=== PATIENT | male | born 2000 | race Caucasian/White ===

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

== ENCOUNTER 2024-12-12 19:20 | Emergency (ER) | payer OTHER ==
[~2024-12-12] VITALS: Ht 177.8 cm; Wt 74.8 kg
[~2024-12-12 19:20] MED LIST changes: +IBUP800 PO
[2024-12-12 19:30] VITALS: BP 158/117
[2024-12-12] MEDS ORDERED: HYDROcodone 10-APAP 325 TAB PO ONE (19:55)
[2024-12-12] MEDS ORDERED: Lidocaine 1%-Epineph 1:100000 20 ML MDV INFIL ONE (19:55)
[2024-12-12] MEDS ORDERED: Ketorolac Tromethamine 15mg Vial IM ONE (21:35)
[2024-12-12] MEDS ORDERED: ONDA4ODT MM (22:01)
[2024-12-12] MEDS ORDERED: KETO10 PO (22:01)
== END 2024-12-12 23:47 | disposition home or self-care (01) ==
LOC: ER 19:20
DX: S41.011A Laceration without foreign body of right shoulder, initial encounter (principal); S51.012A Laceration without foreign body of left elbow, initial encounter; S20.319A Abrasion of unspecified front wall of thorax, initial encounter; F17.290 Nicotine dependence, other tobacco product, uncomplicated; Z23 Encounter for immunization; W01.110A Fall on same level from slipping, tripping and stumbling with subsequent striking against sharp glass, initial encounter
CPT/HCPCS: 12002; 73030; 73080; 90471; 90715; 96372-59; 99283-25; A9270; J1885

== ENCOUNTER 2025-03-11 17:39 | Emergency (ER) | payer OTHER ==
[~2025-03-11] VITALS: Ht 177.8 cm; Wt 73.9 kg
[~2025-03-11 17:39] MED LIST changes: +KETO10 PO; +ONDA4ODT MM
[2025-03-11 18:36] LABS: BASOPHILS ABSOLUTE AUTO 0.06 K/mm3 (0.00-0.23); BASOPHILS PERCENT AUTO 1 % (0-2); EOSINOPHILS ABSOLUTE AUTO 0.18 K/mm3 (0.00-0.68); EOSINOPHILS PERCENT AUTO 3 % (0-6); Hematocrit 46.1 % (37.0-53.0); Hemoglobin 15.8 g/dL (13.5-17.5); IMMATURE GRAN ABSOLUTE AUTO 0.01 K/mm3 (0.00-0.10); IMMATURE GRAN PERCENT AUTO 0 % (0-1); LYMPHOCYTES ABSOLUTE AUTO 2.00 K/mm3 (0.84-5.20); LYMPHOCYTES PERCENT AUTO 28 % (21-46); MONOCYTES ABSOLUTE AUTO 0.60 K/mm3 (0.16-1.47); MONOCYTES PERCENT AUTO 8 % (4-13); Mean Corpuscular HGB Conc 34.3 g/dL (31.5-36.5); Mean Corpuscular Volume 86 fL (80-100); NEUTROPHILS ABSOLUTE AUTO 4.33 K/mm3 (1.96-9.15); NEUTROPHILS PERCENT AUTO 60 % (41-73); NRBC ABSOLUTE 0.00 K/mm3 (0.00-0.02); NRBC Auto 0.0 /100 WBC (0.0-0.2); Platelet Count 204 K/mm3 (150-400); RDW Coefficient Variation 12.1 % (11.7-14.2); RDW Standard Deviation 38.1 fL (35.1-46.3)
[2025-03-11 18:50] LABS: Alanine Aminotransfer (ALT/SGP 26.0 U/L (12-78); Albumin, Blood 4.5 g/dL (3.4-5.0); Albumin/Globulin Ratio 1.6 (0.8-1.8); Anion Gap 9.0 mmol/L (3-11); Aspartate Aminotrans (AST/SGOT 26.0 U/L (12-37); Bilirubin, Total 0.3 mg/dL (0.1-1.0); Blood Urea Nitrogen 16.0 mg/dL (8-24); CO2, Blood 26.0 mmol/L (21-32); Calcium, Blood 9.2 mg/dL (8.5-10.1); Chloride, Blood 106.0 mmol/L (98-108); Creatinine, Blood 0.98 mg/dL (0.60-1.20); Globulin, Blood 2.9 g/dL (2.2-4.0); Glucose, Blood 97.0 mg/dL (70-99); Potassium, Blood 3.8 mmol/L (3.5-5.5); Sodium, Blood 137.0 mmol/L (136-145); Total Protein, Blood 7.4 g/dL (6.4-8.2)
[2025-03-11 22:52] LABS: Magnesium, Blood 1.9 mg/dL (1.6-2.4)
[2025-03-11] MEDS ORDERED: NICO21TP TOP (23:25)
[2025-03-11 23:37] VITALS: BP 123/76
== END 2025-03-11 23:39 | disposition home or self-care (01) ==
LOC: ER 17:39
PROVIDERS: Student in an Organized Health Care Education/Training Program
DX: R07.9 Chest pain, unspecified (principal); R20.0 Anesthesia of skin; E87.6 Hypokalemia; F17.290 Nicotine dependence, other tobacco product, uncomplicated
CPT/HCPCS: 71046; 80053; 83690; 83735; 84484; 85025; 93005; 93010; 99285-25; A9270

== ENCOUNTER 2025-04-10 15:06 | Emergency (ER) | payer OTHER ==
[~2025-04-10] VITALS: Ht 177.8 cm; Wt 74.8 kg
[~2025-04-10 15:06] MED LIST changes: +NICO21TP TOP
[2025-04-10 15:51] VITALS: BP 158/95
[2025-04-10] MEDS ORDERED: ERYT1OIN LEFTEYE (15:59)
== END 2025-04-10 15:58 | disposition home or self-care (01) ==
LOC: ER 15:06
DX: H10.9 Unspecified conjunctivitis (principal); F17.290 Nicotine dependence, other tobacco product, uncomplicated
CPT/HCPCS: 99282